=== PATIENT | male | born 1955 | race Caucasian/White ===

== ENCOUNTER 2018-11-29 09:49 | Outpatient (CLI) | payer OTHER ==
--- NOTE | 2018-11-29 10:04 | RAD ---
EXAM: Chest 2 views: HISTORY: Chest pain COMPARISON: None. FINDINGS: There is a normal-sized cardiomediastinal silhouette. There is no evidence of consolidation, mass, or pleural effusion. Degenerative changes are seen in the spine. IMPRESSION: No evidence of acute cardiopulmonary disease
--- NOTE | 2018-11-29 10:08 | RAD ---
EXAM: 2 views of the left knee HISTORY: Knee pain after arthroplasty COMPARISON: None FINDINGS: No knee effusion is seen. The patient is status post knee arthroplasty without perihardware lucency or fracture. No soft tissue swelling is seen. IMPRESSION: Status post knee arthroplasty without evidence of complication.
== END 2018-11-29 09:50 | disposition home or self-care (01) ==
LOC: BICRAD 09:49
PROVIDERS: ATTEND Internal Medicine
DX: Z02.71 Encounter for disability determination (principal); Z96.652 Presence of left artificial knee joint
CPT/HCPCS: 71046